=== PATIENT | female | born 1985 | race Caucasian/White ===

== ENCOUNTER 2016-07-27 10:52 | Emergency (ER) | payer OTHER ==
[2016-07-27 10:56] VITALS: BP 159/103
[2016-07-27] MEDS ORDERED: PRED-220 PO (11:10)
[2016-07-27] MEDS ORDERED: DOXYCYCLINE HYCLATE 100 MG TABLET PO ONE (11:30)
[2016-07-27] MEDS ORDERED: DEXAMETHASONE SOD PHOS 10 MG/ML VIAL IM ONE (11:30)
--- NOTE | 2016-07-27 11:58 | ED.ADGEN ---
Past History Past Medical History: No Pertinent History Past Surgical History: No Surgical History Alcohol Use: None Drug Use: None Adult General HPI HPI Patient is a 31-year-old female presents emergency Department with pain and swelling and redness to her left lower leg. Patient has a poison lukasz exposure with associated laceration that has 4-5 days old. She has been started on a Medrol Dosepak. She is been given a prescription for doxycycline but has not had an opportunity to fill that yet. Review of Systems Review of Systems Constitutional: Denies fever or chills [] Eyes: Denies change in visual acuity, redness, or eye pain [] HENT: Denies nasal congestion or sore throat [] Respiratory: Denies cough or shortness of breath [] Cardiovascular: No additional information not addressed in HPI [] GI: Denies abdominal pain, nausea, vomiting, bloody stools or diarrhea [] : Denies dysuria or hematuria [] Musculoskeletal: Denies back pain or joint pain [] Integument: Denies rash or skin lesions [] Neurologic: Denies headache, focal weakness or sensory changes [] Endocrine: Denies polyuria or polydipsia [] Current Medications Current Medications Current Medications Medications (Trade) Dose Ordered Sig/Shannan Start Time Stop Time Status Last Admin Dose Admin Dexamethasone Sodium Phosphate (Decadron) 10 mg 1X ONCE 07/27/16 11:30 07/27/16 11:30 DC 07/27/16 11:21 10 MG Doxycycline Hyclate (Vibra-Tab) 100 mg 1X ONCE 07/27/16 11:30 07/27/16 11:30 DC 07/27/16 11:18 100 MG Allergies Allergies Allergies Coded Allergies Type Severity Reaction Last Updated Verified No Known Drug Allergies 07/27/16 No Physical Exam Physical Exam Constitutional: Well developed, well nourished, no acute distress, non-toxic appearance. [] HENT: Normocephalic, atraumatic, bilateral external ears normal, oropharynx moist, no oral exudates, nose normal. [] Eyes: PERRLA, EOMI, conjunctiva normal, no discharge. [] Neck: Normal range of motion, no tenderness, supple, no stridor. [] Skin: Left lower extremity has a 20 x 10 cm area of erythema with increased warmth. She does have some vesicular fluid filled lesions, there is no buddy purulence from the wound. The areas are exquisitely tender to palpation Extremities: no cyanosis, no clubbing, ROM intact, no edema. [] Neurologic: Alert and oriented X 3, normal motor function, normal sensory function, no focal deficits noted. [] Psychologic: Affect normal, judgement normal, mood normal. [] Current Patient Data Vital Signs Vital Signs Date Time Temp Pulse Resp B/P Pulse Ox O2 Delivery O2 Flow Rate FiO2 07/27/16 10:56 98.0 88 18 98 Room Air EKG EKG [] Radiology/Procedures Radiology/Procedures [] Course & Med Decision Making Course & Med Decision Making Pertinent Labs and Imaging studies reviewed. (See chart for details) Patient was given a dose of Decadron here in emergency department. We did also give her a dose of by mouth doxycycline. She is given a prescription for a longer steroid taper. She will follow-up with her doctor as needed and return emergency department sooner she develops new or worsening symptoms. [] Final Impression Final Impression contact dermatitis, cellulitis Problems: Dragon Disclaimer Dragon Disclaimer This electronic medical record was generated, in whole or in part, using a voice recognition dictation system. EMILIA ERICKSON MD Jul 27, 2016 11:58
== END 2016-07-27 11:26 | disposition home or self-care (01) ==
LOC: ER 10:52
DX: L03.116 Cellulitis of left lower limb (principal); L25.9 Unspecified contact dermatitis, unspecified cause
CPT/HCPCS: 96372; 99283; J1100

== ENCOUNTER → 2019-04-11 | Outpatient (CLI) | payer BC, OTHER ==
[~2019-04-11] MED LIST: PRED-220 PO
--- NOTE | 2019-04-11 09:51 | RAD ---
Examination: Ultrasound pelvis HISTORY: History of excessive menstruation Comparison: None. FINDINGS: The uterus measures 10.4 x 6.4 x 4.5 cm. The right ovary measures 3.4 x 2.1 x 1.3 cm. The left ovary measures 4.4 x 3.7 x 2.3 cm. Blood flow identified in the right and left ovaries. There is linear echogenicity identified in the endometrium likely intrauterine contraceptive device. IMPRESSION: 1. Intrauterine contraceptive device in place. Electronically signed by: Danielito Rome MD (04/11/2019 9:48 AM) [id number]
== END | disposition home or self-care (01) ==
LOC: US 08:43
PROVIDERS: ATTEND Physician Assistant
DX: N92.1 Excessive and frequent menstruation with irregular cycle (principal)
CPT/HCPCS: 76856

== ENCOUNTER → 2020-08-25 | Outpatient (CLI) | payer BC ==
[2020-08-25 08:34] LABS: BASO % 1 % (0-3); EOS # 0.1 x10^3/uL (0.0-0.7); EOS % 2 % (0-3); HEMATOCRIT 38.6 % (36.0-47.0); HEMOGLOBIN 12.8 g/dL (12.0-15.5); LYMPH # 1.5 x10^3/uL (1.0-4.8); LYMPH % 28 % (24-48); MEAN CORPUSCULAR HEMOGLOBIN 30 pg (25-35); MEAN CORPUSCULAR HGB CONC 33 g/dL (31-37); MEAN CORPUSCULAR VOLUME 91 fL (79-100); MONO # 0.4 x10^3/uL (0.0-1.1); MONO % 8 % (0-9); NEUT # 3.2 x10^3uL (1.8-7.7); NEUT % 61 % (31-73); PLATELET COUNT 246 x10^3/uL (140-400); RED BLOOD COUNT 4.23 x10^6/uL (3.50-5.40); WHITE BLOOD COUNT 5.3 x10^3/uL (4.0-11.0)
[2020-08-25 09:16] LABS: ALBUMIN 3.6 g/dL (3.4-5.0); CALCIUM 8.4 mg/dL (8.5-10.1); CREATININE 0.8 mg/dL (0.6-1.0); GFR 80.7; POTASSIUM 4.2 mmol/L (3.5-5.1); TOTAL BILIRUBIN 0.4 mg/dL (0.2-1.0); TOTAL PROTEIN 7.1 g/dL (6.4-8.2)
[2020-08-25 11:19] LABS: THYROID STIM HORMONE (TSH) 0.602 uIU/mL (0.358-3.740)
== END ==
LOC: LAB 07:24
PROVIDERS: ATTEND Physician Assistant
DX: N92.1 Excessive and frequent menstruation with irregular cycle (principal); Z82.49 Family history of ischemic heart disease and other diseases of the circulatory system; Z83.3 Family history of diabetes mellitus
CPT/HCPCS: 36415; 80053; 80061; 83036; 84443; 85025

== ENCOUNTER → 2020-11-05 | Outpatient (CLI) | payer BC ==
--- NOTE | 2020-11-05 13:38 | RAD ---
EXAM: Pelvic ultrasound HISTORY: Abnormal uterine bleeding. COMPARISON: None. FINDINGS: Sonographic evaluation of the pelvis was performed transabdominally and transvaginally. The uterus is anteverted and measures 5.8 x 5.6 x 4.7 cm. The endometrial stripe measures 8 mm. No ma sses are identified. Nonmasslike heterogeneity within the junctional zone suggests adenomyosis. There is no significant free fluid. The right ovary measures 5.0 x 3.2 x 2.0 cm. The left ovary measures 3.7 x 2.8 x 1.5 cm. There is nor mal Doppler flow bilaterally. There are no suspicious lesions. IMPRESSION: 1. Thickening and heterogeneity of the uterine junctional zone suggests adenomyosis. MRI could furthe r evaluate if the diagnosis remains unclear. Electronically signed by: Willam Waite MD (11/05/2020 1:36 PM) [facility]
== END ==
LOC: US 07:38
PROVIDERS: ATTEND Obstetrics & Gynecology
DX: N92.0 Excessive and frequent menstruation with regular cycle (principal); N94.6 Dysmenorrhea, unspecified
CPT/HCPCS: 76830; 76856